=== PATIENT | male | born 1995 | race Caucasian/White ===

== ENCOUNTER 2021-08-22 19:36 | Emergency (ER) | payer BC, OTHER ==
[2021-08-22 20:53] LABS: CORONAVIRUS COVID-19 NAA POSITIVE (NEGATIVE); INFLUENZA A NAA NEGATIVE (NEGATIVE); INFLUENZA B NAA NEGATIVE (NEGATIVE)
== END 2021-08-22 21:57 | disposition home or self-care (01) ==
LOC: MW.ED 19:36
DX: U07.1 COVID-19 (principal)
CPT/HCPCS: 0240U; 99283